=== PATIENT | male | born 1965 | race Caucasian/White ===

== ENCOUNTER 2017-02-15 16:49 | Emergency (ER) | payer MEDICAID ==
[~2017-02-15] VITALS: Ht 167.6 cm; Wt 73.0 kg
[2017-02-15 16:52] VITALS: Ht 167.6 cm; Wt 73.0 kg
[2017-02-15] MEDS ORDERED: DIPHTH/TET/ACEL PERTUSS (ADULT) 0.5 ML VIAL IM* ONE (17:30)
[2017-02-15] MEDS ORDERED: LIDOCAINE 2% (MDV) 20 ML INJ INJ ONE (17:30)
[2017-02-15] MEDS ORDERED: IBUP400T22 PO (17:37)
[2017-02-15] MEDS ORDERED: CEPH-443 PO (17:37)
--- NOTE | 2017-02-15 17:42 | ERD ---
ER Documentation Chief Complaint Date/Time DATE: 02/15/17 TIME: 17:39 Chief Complaint lac on right hand 2nd finger x 30 minutes HPI 51-year-old male patient with no significant past medical history presents the ED complaining of a right index finger laceration that started 30 minutes ago. States that he was working and was trying to cut a tree and accidentally cut his right index finger with a metal saw. Reports that he is right-handed. Denies any loss of sensation, decreased range of motion, fever, chills, nausea, vomiting. States that there was minimal bleeding. Reports that he is unsure if he is up-to-date with his tetanus vaccine. ROS All systems reviewed and are negative except as per history of present illness. Medications Home Meds Active Scripts Ibuprofen* (Motrin*) 400 Mg Tab, 400 MG PO Q6, #30 TAB Prov:QUANG LEACH PA-C 02/15/17 Cephalexin* (Keflex*) 500 Mg Capsule, 500 MG PO QID for 7 Days, CAP Prov:QUANG LEACH PA-C 02/15/17 Allergies Allergies: Coded Allergies: No Known Allergy (Unverified , 02/15/17) PMhx/Soc Medical and Surgical Hx: pt denies Medical Hx, pt denies Surgical Hx History of Surgery: No Anesthesia Reaction: No Hx Neurological Disorder: No Hx Respiratory Disorders: No Hx Cardiac Disorders: No Hx Psychiatric Problems: No Hx Miscellaneous Medical Probl: No Hx Alcohol Use: No Hx Substance Use: No Hx Tobacco Use: Yes Smoking Status: Current every day smoker Physical Exam Vitals Vital Signs Date Time Temp Pulse Resp B/P Pulse Ox O2 Delivery O2 Flow Rate FiO2 02/15/17 16:52 99.4 80 18 153/93 98 Physical Exam Const: [id number], well-nourished. In no acute distress. Head: Atraumatic, normocephalic Eyes: Normal Conjunctiva without injection ENT: Normal external ear, nose and mouth. Neck: Full range of motion. No meningismus. Resp: Clear to auscultation bilaterally. No wheezing, rhonchi, rales, or crackles. No accessory muscle use. No retractions. Cardio: Regular rate and rhythm, no murmurs Skin: No petechiae or rashes Back: No midline tenderness. No CVA tenderness. Ext: No cyanosis, or edema. Cap refill less than 2 seconds. Distal pulses intact bilaterally. 1 cm linear laceration in between U shaped 3 cm laceration above the PIP of the volar aspect of patient's right index finger. No visualization of foreign bodies or tendons. No erythema noted. Slight edema noted. Full range of motion of the DIP, PIP, MCP joints. Neurovascularly intact. Neur: Awake and alert. Normal gait and coordination. Muscle strength 5/5. Sensation intact bilaterally. Psych: Normal Mood and Affect Results 24 hrs Current Medications Medications (Trade) Dose Ordered Sig/Vesna Route PRN Reason Start Time Stop Time Status Last Admin Dose Admin Diphtheria/ Tetanus/Acell Pertussis (Adacel) 0.5 ml ONCE ONCE IM* 02/15/17 17:30 02/15/17 17:31 DC 02/15/17 17:54 Lidocaine (Xylocaine 2% (Mdv) 20 ml) 20 ml ONCE ONCE INJ 02/15/17 17:30 02/15/17 17:31 DC Procedures/MDM 51-year-old male patient with no significant past medical history is right- handed and sustained a laceration on his right index finger. Patient is afebrile and nontoxic-appearing. Patient has normal vital signs. A right hand x-ray was ordered to further evaluate patient. Patient's tetanus vaccine was updated here in the ED. Patient gave consent to perform laceration repair. Laceration Repair by me: Anesthesia: 5 cc 2% lidocaine locally - digital block Location: [Volar aspect of patient's right index finger above DIP] Tendon/Joint/Nerves: No injury Foreign body: None detected after copious irrigation and exploration Technique: 12 4-0 Prolene Simple Interrupted Sutures Complexity: No subcutaneous sutures/mucosal repair/ edge excision Post Closure Length: [3] cm U shaped laceration with 1 cm superficial linear laceration in between Patient's bleeding was easily controlled in the department and there is no indication of anemia. Patient is neurovascularly intact. Patient had full range of motion of the PIP , DIP, MCP joints of the bilateral hands. No evidence of compartment syndrome, neurologic injury, vascular injury, open joint, tendon laceration, or foreign body. Patient is appropriate for outpatient follow up. 48 hour wound check. Scar minimization instructions given. Instructed patient to return for suture removal in 7-10 days. Keflex was prescribed to patient for infection prevention. Instructed patient to return to the ED sooner for any worsening symptoms. Follow up with primary care physician in 1-2 days. Patient's questions were answered. Patient understood and agreed with discharge plan. Pending hand xray results. This patient has been signed out to my colleague, Anamika Christianson NP for further treatment. Patient does have a fracture noted on the x-ray, patient will be given Ancef here in the ED as well as a metal splint. Patient will also be strictly instructed to follow-up with an orthopedic physician for further evaluation and treatment. Departure Diagnosis: Primary Impression: Finger laceration Encounter type: initial encounter Qualified Code: S61.219A - Finger laceration, initial encounter Condition: Stable Patient Instructions: Laceration, Hand Referrals: [facility] YOU HAVE RECEIVED A MEDICAL SCREENING EXAM AND THE RESULTS INDICATE THAT YOU DO NOT HAVE A CONDITION THAT REQUIRES URGENT TREATMENT IN THE EMERGENCY DEPARTMENT. FURTHER EVALUATION AND TREATMENT OF YOUR CONDITION CAN WAIT UNTIL YOU ARE SEEN IN YOUR DOCTORS OFFICE WITHIN THE NEXT 1-2 DAYS. IT IS YOUR RESPONSIBILITY TO MAKE AN APPOINTMENT FOR FOLOW-UP CARE. IF YOU HAVE A PRIMARY DOCTOR --you should call your primary doctor and schedule an appointment IF YOU DO NOT HAVE A PRIMARY DOCTOR YOU CAN CALL OUR PHYSICIAN REFERRAL HOTLINE AT IF YOU CAN NOT AFFORD TO SEE A PHYSICIAN YOU CAN CHOSE FROM THE FOLLOWING [facility] [address] [facility]. [facility] [address] [facility] [address] [facility] [address] [facility]. [facility] [address] [facility]. [employer] [facility] [address] [facility]. [facility] YOU HAVE RECEIVED A MEDICAL SCREENING EXAM AND THE RESULTS INDICATE THAT YOU DO NOT HAVE A CONDITION THAT REQUIRES URGENT TREATMENT IN THE EMERGENCY DEPARTMENT. FURTHER EVALUATION AND TREATMENT OF YOUR CONDITION CAN WAIT UNTIL YOU ARE SEEN IN YOUR DOCTORS OFFICE WITHIN THE NEXT 1-2 DAYS. IT IS YOUR RESPONSIBILITY TO MAKE AN APPOINTMENT FOR FOLOW-UP CARE. IF YOU HAVE A PRIMARY DOCTOR --you should call your primary doctor and schedule and appointment IF YOU DO NOT HAVE A PRIMARY DOCTOR YOU CAN CALL OUR PHYSICIAN REFERRAL HOTLINE AT . IF YOU CAN NOT AFFORD TO SEE A PHYSICIAN YOU CAN CHOSE FROM THE FOLLOWING [facility] INSTITUTIONS: [facility] [address] [place] [address] [facility] [address] [place], [place] [id number] [place] [address] [address] [place] [address] [facility] Additional Instructions: WOUND CHECK:CONSULTE A BARNETT MDICO EN 2 burt para shreya BARNETT HERIDA. Llame al doctor MAANA y kierra zohaib ISSAC PARA DENTRO DE 2-3 NUGENT.Dgale a la secretaria que nosotros le instruimos hacer esta issac.Avise o llame si barnett condicin se empeora antes de la issac. Regresa aqui si peor o no mejor. QUANG LEACH PA-C Feb 15, 2017 17:42
--- NOTE | 2017-02-15 19:03 | RADRPT ---
PROCEDURE: XR Hand. CLINICAL INDICATION: Index finger injury, pain. TECHNIQUE: Three views of the right hand. COMPARISON: None available. FINDINGS: No acute fracture or dislocation is identified. There is a healed fracture of the third proximal pha lanx. The joint spaces are preserved. There is soft tissue swelling along the second finger. IMPRESSION: 1. No acute fracture or dislocation of the right hand. 2. Healed fracture of the third proximal phalanx. RPTAT: HTAR .Carlyle Rodgers MD, Date Time Electronically viewed and signed by .Carlyle Rodgers MD, on 02/15/2017 19:03 .R/
== END 2017-02-15 20:00 | disposition home or self-care (01) ==
LOC: FTE 16:49
DX: S61.210A Laceration without foreign body of right index finger without damage to nail, initial encounter (principal); F17.210 Nicotine dependence, cigarettes, uncomplicated; W27.0XXA Contact with workbench tool, initial encounter; Y92.9 Unspecified place or not applicable
CPT/HCPCS: 12002; 73130; 90471; 90715; Z7502; Z7610

== ENCOUNTER 2017-03-02 12:17 | Emergency (ER) | payer MEDICAID ==
[~2017-03-02] VITALS: Ht 167.6 cm; Wt 73.5 kg
[~2017-03-02 12:17] MED LIST: CEPH-443 PO; IBUP400T22 PO
[2017-03-02 12:19] VITALS: Ht 167.6 cm; Wt 73.5 kg
--- NOTE | 2017-03-02 13:15 | ERD ---
ER Documentation Chief Complaint Date/Time DATE: 03/02/17 TIME: 13:12 Chief Complaint SUTURE REMOVAL HPI Patient is a 51-year-old male who presents to the ED with right index finger suture removal. Patient states that 15 days ago he had an injury. Sutures have been in place for 15 days. He denies pain. Denies fever, chills or swelling. States that he is not sure why he did not come earlier to have sutures removed. He has no complaints today. ROS All systems reviewed and are negative except as per history of present illness. Medications Home Meds Active Scripts Ibuprofen* (Motrin*) 400 Mg Tab, 400 MG PO Q6, #30 TAB Prov:QUANG LEACH PA-C 02/15/17 Cephalexin* (Keflex*) 500 Mg Capsule, 500 MG PO QID for 7 Days, CAP Prov:QUANG LEACH PA-C 02/15/17 Allergies Allergies: Coded Allergies: No Known Allergy (Unverified , 02/15/17) PMhx/Soc History of Surgery: No Anesthesia Reaction: No Hx Neurological Disorder: No Hx Respiratory Disorders: No Hx Cardiac Disorders: No Hx Psychiatric Problems: No Hx Miscellaneous Medical Probl: No Hx Alcohol Use: No Hx Substance Use: No Hx Tobacco Use: Yes Smoking Status: Current every day smoker FmHx Family History: No coronary disease, No diabetes, No other Physical Exam Vitals Vital Signs Date Time Temp Pulse Resp B/P Pulse Ox O2 Delivery O2 Flow Rate FiO2 03/02/17 12:19 98.5 72 19 155/88 97 Physical Exam GENERAL: Well-developed, well-nourished male. Appears in no acute distress. HEAD: Normocephalic, atraumatic. EYES: Pupils are equally reactive bilaterally. EOMs grossly intact. No conjunctival erythema. ENT: Moist mucous membranes. No uvula deviation. No kissing tonsils. No exudates. NECK: Supple. No lymphadenopathy or thyromegaly. No meningismus. negative kernig. negative brudinski. LUNG: Clear to auscultation bilaterally. No rhonchi, wheezing, rales or coarse breath sounds. HEART: Regular rate and rhythm. No murmurs, rubs or gallops. Extremities: Equal pulses bilaterally. No peripheral clubbing, cyanosis or edema. No unilateral leg swelling. Sutures visible on the right index finger. No drainage or signs of infection. Flexion at the DIP and PIP joint intact. NEUROLOGIC: Alert and oriented. Moving all four extremities. 5/5 strength in all extremities. Normal speech. Steady gait. SKIN: Normal color. Warm and dry. No rashes or lesions. Capillary refill < 2 seconds Procedures/MDM ER COURSE: I kept the patient and/or family informed of laboratory and diagnostic imaging results throughout the emergency room course. PROCEDURES Suture Removal by me: 12 sutures Sutures removed with tweezers and scissors without incident. Wound shows no evidence of infection, foreign body, neurologic injury, vascular injury, open joint or tendon laceration. Patient to follow up PRN. MEDICAL DECISION MAKING: This is a 51-year-old male who presents with suture removal after sustaining an injury 15 days ago. Vital signs were reviewed. Patient is afebrile. Patient is not hypoxic. Patient is not toxic or ill-appearing. Sutures removed without complications. Patient's finger does not show signs of infection. I have low suspicion for felon, septic joint, flexor tenosynovitis or cellulitis, abscess, osteomyelitis, fracture. DISCHARGE: At this time, patient is stable for discharge and outpatient management with no new complaints during the ER course. . Patient will be discharged home with instructions to recheck for new or worsening symptoms such as fever, nausea, weakness, LOC and to follow up with primary care in the next 1-2 days. Patient was advised to return to the ER for any new or worsening symptoms. Plan was discussed and patient and/or family understands and agrees. Home instructions were given. Departure Diagnosis: Primary Impression: Encounter for removal of sutures Condition: Stable Patient Instructions: Suture Removal, No Complication Referrals: NO PRIMARY,CARE PHYSICIAN (PCP) Additional Instructions: Llame al doctor MAMADELINE y kierra zohaib ISSAC PARA DENTRO DE 1-2 NUGENT.Dgale a la secretaria que nosotros le instruimos hacer esta issac.Avise o llame si palmer condicin se empeora antes de la issac. Regresa aqui si peor o no mejor. MURRAY CACERES PA-C Mar 02, 2017 13:15
== END 2017-03-02 13:10 | disposition home or self-care (01) ==
LOC: FTE 12:17
DX: Z48.02 Encounter for removal of sutures (principal); F17.210 Nicotine dependence, cigarettes, uncomplicated
CPT/HCPCS: 99281